=== PATIENT | male | born 1985 | race Caucasian/White ===

== ENCOUNTER 2016-12-27 01:50 | Emergency (ER) | payer OTHER ==
[2016-12-27 02:10] LABS: BASOPHIL 0.8 % (0-2); EOSINOPHIL 3.9 % (0-5); HCT 40.6 % (42.0-52.0); HGB 14.9 g/dl (13.2-18.0); MCH 31.6 pg (25.0-31.0); MCHC 36.7 g/dL (32.0-36.0); MONOCYTE 8.1 % (0-12); MPV 10.6 fL (6.0-9.5); NEUTROPHIL 44.2 % (41-80); PLT 209 K/uL (150-400); RBC 4.72 M/uL (4.70-6.00); RDW 12.5 % (11.5-14.0); WBC 5.2 K/uL (4.0-10.5)
[2016-12-27 02:25] LABS: CREATININE 1.1 mg/dL (0.7-1.2); POTASSIUM 3.5 mmol/L (3.5-5.1)
== END 2016-12-27 03:06 | disposition home or self-care (01) ==
LOC: FER 01:50
PROVIDERS: Emergency Medicine Emergency Medical Services
DX: R11.2 Nausea with vomiting, unspecified (principal); R10.84 Generalized abdominal pain; E86.9 Volume depletion, unspecified; F17.210 Nicotine dependence, cigarettes, uncomplicated
CPT/HCPCS: 36415; 80048; 85025; J1980; J2405